=== PATIENT | male | born 1985 | race African-American/Black ===

== ENCOUNTER 2017-06-01 13:52 | Emergency (ER) | payer SELFPAY ==
[~2017-06-01] VITALS: Ht 175.3 cm; Wt 95.0 kg
[2017-06-01 14:00] VITALS: BP 122/81
[2017-06-01] MEDS ORDERED: KETOROLAC 60MG/2ML VIAL IM ONE (15:00)
== END 2017-06-01 23:00 | disposition home or self-care (01) ==
LOC: ER 22:53
DX: M54.5 Low back pain (principal); R03.0 Elevated blood-pressure reading, without diagnosis of hypertension
CPT/HCPCS: 96372; 99283; J1885